=== PATIENT | female | born 1950 | race Caucasian/White ===

== ENCOUNTER 2021-11-24 20:29 | Emergency (ER) | payer MEDICARE ==
[~2021-11-24] VITALS: Ht 160 cm; Wt 75.7 kg
== END 2021-11-24 22:15 | disposition home or self-care (01) ==
LOC: ER 20:35
DX: H11.31 Conjunctival hemorrhage, right eye (principal); I10 Essential (primary) hypertension; E78.5 Hyperlipidemia, unspecified; Z86.73 Personal history of transient ischemic attack (TIA), and cerebral infarction without residual deficits